=== PATIENT | male | born 1970 | race Caucasian/White ===

== ENCOUNTER 2019-10-21 12:38 | Emergency (ER) | payer OTHER, SELFPAY ==
[2019-10-21 12:52] VITALS: BP 116/71; PULSE 90; RESP 90; TEMP 37.2; O2SAT 99
--- NOTE | 2019-10-21 13:00 | ED.URI ---
HPI - URI/Sore Throat General Chief Complaint: Upper Respiratory Infection Stated Complaint: pos sinus infection Time Seen by Provider: 10/21/19 13:00 Source: patient Mode of arrival: ambulatory Limitations: no limitations History of Present Illness HPI Narrative: Alan Hays is a 49 yo male with PMH of nasal polyps who cones to express care with sinus infection symptoms including pressure and congestion x2 to 3 days. Related Data Allergies Allergy/AdvReac Type Severity Reaction Status Date / Time No Known Allergies Allergy Verified 10/21/19 12:56 Review of Systems Review of Systems: Narrative: CONSTITUTIONAL: Denies fever, chills, sweats. EYES: Denies visual changes, redness, discharge. ENT: has rhinorrhea, congestion, no sore throat, no otalgia. CARDIOVASCULAR: Denies chest pain, palpitations, edema. RESPIRATORY: Denies dyspnea, wheezing, cough GASTROINTESTINAL: Denies abdominal pain, nausea, vomiting, diarrhea. GENITOURINARY: Denies dysuria, hematuria, abnormal discharge SKIN: Denies rash or itching. NEUROLOGIC: Denies numbness, or focal weakness. PSYCHIATRIC: Denies anxiety or depression. [facility] Family History Family History Other Alcoholism Diabetes mellitus Social History Social History (Updated 10/21/19 @ 13:08 by Unique Puckett CNP) Smoking status: Never smoker Alcohol intake: never Gender identity (if verbalized by the patient): Male Comments At time of signature, I agree with nursing past medical, surgical, social and family history. There is no relevant family history pertinent to the presenting complaint. Exam Narrative: Exam Narrative: GENERAL: This is a well-nourished, well-developed patient, in mild distress. HEAD: normocephalic, atraumatic. EYES: Sclera clear/white. Vision is grossly intact. EARS: External ears normal, auditory canals clear and without drainage, TMs normal without perforation. Hearing grossly intact. NOSE: External nose normal with nasal discharge on L, nares with redness, has rhinorrhea. THROAT: Mucous membranes moist, posterior pharynx erythema NECK: Neck supple, non-tender without lymphadenopathy, CARDIOVASCULAR: Regular rate and rhythm without murmurs, gallops, or rubs. RESPIRATORY: Clear to auscultation. Breath sounds equal bilaterally. No wheezes, rales, or rhonchi. GASTROINTESTINAL: Abdomen soft, non-tender, SKIN: warm, intact with no suspicious lesions or rash, good texture and turgor. NEURO: awake, alert, and oriented to person, place and time. There were no obvious focal neurologic abnormalities. Steady gait EXTREMITIES: Normal range of motion. No edema. BACK: Nontender without deformity or crepitance. Course Course Emergency Course: Given Augmentin for nasal infection-discussed his follow-up with his ENT and use of injectable medication for this polyps Vital Signs Vital signs: Vital Signs Temperature 98.9 F 10/21/19 12:52 Pulse Rate 90 10/21/19 12:52 Respiratory Rate 90 H 10/21/19 12:52 Blood Pressure 116/71 10/21/19 12:52 Pulse Oximetry 99 10/21/19 12:52 Temperature 98.9 F 10/21/19 12:52 Pulse Rate 90 10/21/19 12:52 Respiratory Rate 90 H 10/21/19 12:52 Blood Pressure 116/71 10/21/19 12:52 Pulse Oximetry 99 10/21/19 12:52 MDM - URI/Sore Throat Differential Diagnosis Differential diagnosis: Likely upper respiratory infection, sinusitis and other Discharge Plan Discharge Clinical Impression: Sinusitis Qualifiers: Sinusitis location: ethmoidal Chronicity: acute Recurrence: recurrent Qualified Code(s): J01.21 - Acute recurrent ethmoidal sinusitis Patient Disposition: Home, Self-Care Condition: Stable Instructions: Antibiotic Form, Sinusitis (ED) Prescriptions: New amoxicillin-pot clavulanate [Augmentin] 875-125 mg tablet 1 tablet PO Q12H Qty: 20 RF: 0 Interventions: Discharge Disposition Last Done: 10/21/19 13:08
== END 2019-10-21 13:14 | disposition home or self-care (01) ==
PROVIDERS: Emergency Provider Nurse Practitioner
DX: J01.21 Acute recurrent ethmoidal sinusitis (principal)
CPT/HCPCS: 99203; G0463